=== PATIENT | male | born 1955 | race Caucasian/White ===

== ENCOUNTER 2020-07-22 09:09 | Emergency (ER) | payer MEDICARE ==
[~2020-07-22] VITALS: Ht 188 cm; Wt 77.0 kg
[~2020-07-22 09:09] MED LIST: ASPI325T8 PO; CALC625T44 PO; CARV3.1210 PO; CRESTOR40 MG PO; FLUT16SP NS; LORA10TA3 PO; NAPR220C4 PO; OMEP40CA7 PO; SULF500T7 PO; hyomax
--- NOTE | 2020-07-22 10:51 | PHYS DOC ---
Past Medical History Past Medical History: CAD, High Cholesterol, Hypertension Additional Past Medical Histor: crohns Past Surgical History: Coronary Bypass Surgery Additional Past Surgical Histo: back surgery, hernia, lt knee Smoking Status: Never Smoker Alcohol Use: None Drug Use: None General Adult EDM: Chief Complaint: BACK PAIN OR INJURY HPI: HPI: 64-year-old male who presents with right-sided posterior rib pain after falling about 5 or 6 days ago. He has been watching at home thinking it would get better however it did not improve. The pain is a sharp shooting pain is nonradiating. He denies any difficulty breathing. It is worse when he bends over. He denies any midline back pain. He has been able to bear weight on his hips without any pain in his hip since the fall. He did not pass out or lose consciousness. He did not hit his head. Review of systems negative for chest pain shortness of breath abdominal pain vomiting or midline back pain. All other review of systems negative. ED course: 64-year-old male presenting with right posterior rib pain after fall about 5 or 6 days ago. X-rays of the ribs and chest x-ray are unremarkable. We will have him take hydrocodone at home for pain and do incentive spirometry. Follow-up with PCP in 2 to 3 days. Heart Score: Risk Factors: Risk Factors: DM, Current or recent (<one month) smoker, HTN, HLP, family history of CAD, obesity. Risk Scores: Score 0 - 3: 2.5% MACE over next 6 weeks - Discharge Home Score 4 - 6: 20.3% MACE over next 6 weeks - Admit for Clinical Observation Score 7 - 10: 72.7% MACE over next 6 weeks - Early Invasive Strategies Allergies: Allergies: Allergies Coded Allergies Type Severity Reaction Last Updated Verified codeine Adverse Reaction Intermediate Nausea 11/05/14 Yes Physical Exam: PE: General Appearance alert, cooperative, no distress, responsive Head Normocephalic, without obvious abnormality, atraumatic Eyes conjunctivae/corneas clear. PERRL, EOM's intact. Nose Nares normal. Septum midline. Mucosa normal. No drainage or sinus tenderness. Throat no blood or lacerations, normal alignment Neck supple, symmetrical, trachea midline Back/Spine symmetric, normal curvature. ROM normal, no abrasions, no tenderness to palpation, no step-offs MIDLINE. Lungs clear to auscultation bilaterally. Breath sounds bilaterally. Chest Wall normal ribcage with tenderness to palpation of the right posterior rib region. Nontender otherwise in the rib cage. No crepitus to palpation. Heart reg rate and regular rhythm, S1, S2 normal, no murmur, click, rub or gallop Abdomen soft, non-tender. Bowel sounds normal. No masses, no organomegaly. No rebound tenderness or guarding. Pelvic stable Extremities extremities normal, atraumatic with normal range of motion Pulses 2+ and symmetric Skin Skin color, texture, turgor normal. No rashes or lesions Neurologic Grossly normal Eye opening: (4) spontaneous Best motor response: (6) obeys verbal command Best verbal response: (5) oriented and converses Total Angel (E + M + V) = 15 EKG: EKG: [] Radiology/Procedures: Radiology/Procedures: [] Course & Med Decision Making: Course & Med Decision Making Pertinent Labs and Imaging studies reviewed. (See chart for details) [] Dragon Disclaimer: Dragon Disclaimer: This electronic medical record was generated, in whole or in part, using a voice recognition dictation system. Departure Departure Impression: Primary Impression: Rib pain Disposition: 01 DC HOME SELF CARE/HOMELESS Condition: STABLE Referrals: JEANNE PONCE MD (PCP) Patient Instructions: Rib Contusion Additional Instructions: Follow-up with your primary physician in 1 to 2 days. Return to the emergency department if you have any new or concerning findings. Scripts Hydrocodone Bit/Acetaminophen (HYDROCODONE-APAP 5-325 ) 1 Tab Tablet 1 TAB PO PRN Q8HRS PRN for sev, #10 TAB 0 Refills Prov: NAJMA BUSH MD 07/22/20 NAJMA BUSH MD Jul 22, 2020 10:51
--- NOTE | 2020-07-22 11:29 | RAD ---
EXAM: Chest and right ribs, 5 views. HISTORY: Pain. Fall. COMPARISON: None. FINDINGS: A frontal view of the chest and 4 views of the right ribs are obtained. There is suspected chronic lower lobe interstitial prominence. There is no consolidation, pleural effusion or pneumothor ax. There is lingular scarring and a calcified renal within the left mid thorax. There is biapical pl eural parenchymal scarring. The heart is normal in size. There is a cardiac pacemaker defibrillator i n expected position. No acute displaced rib fracture is seen. IMPRESSION: Chronic appearing interstitial changes. No acute osseous finding. Electronically signed by: Jaqueline Piedra MD (07/22/2020 11:27 AM) [id number]
[2020-07-22] MEDS ORDERED: HYDR-2761 PO (12:01)
[2020-07-22 12:25] VITALS: BP 135/71
== END 2020-07-22 12:56 | disposition home or self-care (01) ==
LOC: ER 09:09
DX: R07.81 Pleurodynia (principal); E78.00 Pure hypercholesterolemia, unspecified; I11.9 Hypertensive heart disease without heart failure; Z98.890 Other specified postprocedural states; Z88.5 Allergy status to narcotic agent
CPT/HCPCS: 71101; 99283